=== PATIENT | male | born 1960 | race African-American/Black ===

== ENCOUNTER 2025-03-15 14:31 | Emergency (ER) | payer BC, OTHER ==
[2025-03-15 15:23] LABS: Hematocrit 40.7 % (42.0-52.0); Hemoglobin 13.7 g/dL (14.0-18.0); Mean Corpuscular Hemoglobin 29.6 pg (27.0-31.0); Mean Corpuscular Volume 88.0 fl (78.0-98.0); Platelet Count 357 10x3/uL (130-400); Red Blood Cell (RBC) Count 4.63 mill/uL (4.70-6.10); White Blood Cell (WBC) Count 6.7 10x3/uL (4.8-10.8)
[2025-03-15 15:26] LABS: ALT (SGPT) 26 U/L (Less than 45); AST (SGOT) 20 U/L (11-34); Albumin 4.3 g/dL (3.1-4.5); Alkaline Phosphatase 61 U/L (40-110); Anion Gap 15 mmol/L (10-20); BUN (Urea Nitrogen) 23 mg/dL (8.4-25.7); Bilirubin, Total 0.4 mg/dL (0.3-1.2); Calc. Creatinine Clearance 0 mL/min (70-130); Calcium 9.3 mg/dL (7.8-10.44); Carbon Dioxide 26 mmol/L (23-31); Chloride 99 mmol/L (98-107); Globulin 3.1 g/dL (2.4-3.5); Glucose 114 mg/dL (80-115); Potassium 2.8 mmol/L (3.5-5.1); Sodium 137 mmol/L (136-145)
[2025-03-15 15:28] LABS: Troponin I 0.015 ng/mL (< 0.028)
[2025-03-15 15:35] LABS: MDiff Complete? YES
[2025-03-15 15:41] LABS: Glucose, Urine (Dipstick) Negative (Negative); Leukocyte Negative (Negative); Protein, Urine (Dipstick) Negative (Neg-Trace); Specific Gravity, Urine 1.010 (1.005-1.030)
[2025-03-15 15:51] LABS: Bacteria/HPF None Seen HPF (None Seen); CAUTI Indications for Culture Dysuria,urgency,freq; RBC/HPF None Seen HPF (0-3); WBC/HPF None Seen HPF (0-3)
[2025-03-15 15:52] LABS: Urine Culture Reflex No No
[2025-03-15] MEDS ORDERED: NS 0.9% w/ 20 MEQ KCL 1,000 ML ONE (15:52)
[2025-03-15 16:22] LABS: Magnesium 1.8 mg/dL (1.6-2.6)
[2025-03-15 18:17] LABS: Potassium 3.3 mmol/L (3.5-5.1)
== END 2025-03-15 19:08 | disposition home or self-care (01) ==
LOC: BURERS 14:31
DX: E87.6 Hypokalemia (principal); R91.1 Solitary pulmonary nodule; I10 Essential (primary) hypertension; Z79.899 Other long term (current) drug therapy
CPT/HCPCS: 36415; 71045; 80053; 81001; 83735; 83880; 84484; 85025; 93005; 96365; 96366; J3480